=== PATIENT | male | born 1985 | race Caucasian/White ===

== ENCOUNTER 2021-04-29 16:17 | Emergency (ER) | payer OTHER ==
[2021-04-29 16:50] VITALS: BP 159/91; PULSE 97; TEMP 98.1; BMI 25.1
== END 2021-04-29 17:07 | disposition home or self-care (01) ==
LOC: JER 16:17
DX: U07.1 COVID-19 (principal); R51.9 Headache, unspecified; R05.1 Acute cough
CPT/HCPCS: 87804; 99283-25; C9803-CS; U0003; U0005